=== PATIENT | female | born 2000 | race African-American/Black ===

== ENCOUNTER 2023-07-02 15:05 | Emergency (ER) | payer BC, SELFPAY ==
[2023-07-02 15:13] VITALS: BP 133/79; PULSE 84; RESP 16; TEMP 36.8; O2SAT 100
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
== END 2023-07-02 15:47 | disposition home or self-care (01) ==
PROVIDERS: Emergency Provider Nurse Practitioner Family
DX: S20.02XA Contusion of left breast, initial encounter (principal); W51.XXXA Accidental striking against or bumped into by another person, initial encounter
CPT/HCPCS: 99211; G0463